=== PATIENT | male | born 1975 | race Caucasian/White ===

== ENCOUNTER 2022-07-26 05:48 | Emergency (ER) | payer BC, SELFPAY ==
[2022-07-26] VITALS (7 sets, daily range): BP systolic 106–125; BP diastolic 74–81; PULSE 74–84; RESP 16–18; TEMP 36.7; O2SAT 95–99; BMI 32.3
--- NOTE | 2022-07-26 06:08 | CRLHL7_ITS ---
For Patients: As a result of the Cures Act, medical imaging exams and procedure reports are released immediately into your electronic medical record. You may view this report before your referring provider. If you have questions, please contact your health care provider. Indication: Trauma and pain Technique: Left shoulder 1 views, AP. Comparison: None Impression: Limited one-view radiograph of the left shoulder demonstrates a comminuted, mildly displaced fracture involving the proximal humeral metadiaphysis, with surrounding soft tissue swelling. Dictated by Darrick Mera MD @ 07/26/2022 7:49:15 AM (Electronically Signed)
--- NOTE | 2022-07-26 06:11 | ED_ITS ---
HPI - General Adult General Date Seen: 07/26/22 Chief complaint: Shoulder Injury/Pain Stated complaint: fall, left shoulder injury Time Seen by Provider: 07/26/22 05:56 Source: patient and family Mode of arrival: ambulatory Limitations: no limitations History of Present Illness HPI narrative: Patient is a 47-year-old male who was slipped and fell on the ice. He believes he landed on his outstretched left arm. He comes to the emergency department with complaints of left upper arm pain. He denies any other injuries. He has no pain at the elbow, wrist, hand. He is unable to lift the left arm however. He suffers from type 2 diabetes, hypertension, anxiety and depression. He has not had any of his medications today. He ate last before midnight. He has done well with anesthesia with numerous other surgical procedures. Related Data Home Medications Medication Instructions Recorded Confirmed blood sugar diagnostic (Accu-Chek 07/26/22 07/26/22 Guide test strips) citalopram 40 mg tablet 40 mg PO DAILY 07/26/22 07/26/22 glimepiride 2 mg tablet 2 mg PO DAILY 07/26/22 07/26/22 insulin glargine-yfgn 100 unit/mL 50 unit subcut HS 07/26/22 07/26/22 (3 mL) subcutaneous pen (Semglee (insulin glargine-yfgn) Pen) lisinopril 20 2 tab PO DAILY 07/26/22 07/26/22 mg-hydrochlorothiazide 25 mg tablet metformin 1,000 mg tablet 1,000 mg PO BID 07/26/22 07/26/22 montelukast 10 mg tablet 10 mg PO HS 07/26/22 07/26/22 Allergies Allergy/AdvReac Type Severity Reaction Status Date / Time No Known Drug Allergies Allergy Verified 07/26/22 06:14 Review of Systems Narrative: Review of systems is outlined above otherwise noted to be negative. [facility] Medical History (Updated 07/26/22 @ 07:49 by Tirso Watson MD) Allergic rhinitis Closed fracture of sacrum Depression Fracture, ilium closed Generalized anxiety disorder History of penetrating abdominal trauma Hypertension Lumbar disc herniation Lumbar vertebral fracture Mild intermittent asthma Pain medication agreement Type 2 diabetes mellitus Surgical History (Updated 07/26/22 @ 07:05 by Tirso Watson MD) History of discectomy History of hemilaminectomy History of hernia repair History of repair of right rotator cuff Family History (Updated 07/26/22 @ 07:21 by Tirso Watson MD) Mother Breast cancer Father Diabetes High blood pressure Social History Smoking Status: Current every day smoker Second hand tobacco smoke exposure: No How often do you have a drink containing alcohol: never How often do you have six or more drinks on one occasion: Never AUDIT-C Alcohol total score: 0 Non-prescribed substance use: denies use Exam Narrative: Exam Narrative: Vitals noted. HEENT: Conjunctiva clear. Tympanic membranes are pearly white bilaterally. Posterior pharynx is clear without erythema or exudate. Neck is supple without adenopathy, thyromegaly, carotid bruit. Lungs: Clear to auscultation in all sellers. No wheezes, rales, rhonchi. Heart: Regular rate and rhythm without murmur. Abdomen: Soft and nontender. No guarding, rigidity, rebound. Bowel sounds are normal. No palpable masses. Extremities: Good distal pulses. He has a deformity of his left upper arm. No tenderness at the shoulder or elbow. Good distal CMS. Skin: No abnormalities noted of the exposed skin. Neurologic: Awake, alert, fully oriented. Neurologic exam is nonfocal. Const: Vital Signs, click to edit/add: Vital Signs - 24 hr 07/26/22 06:10 Temperature 98.0 F Pulse Rate [Right Pulse Oximeter] 84 Respiratory Rate 18 Blood Pressure [Ri ght Upper Arm] 125/74 Pulse Oximetry 99 Oxygen Delivery Me thod Room Air Course Course Hospital Course: Patient seen and examined. He has an obvious fracture of the left upper arm. X-ray confirms a comminuted proximal humerus fracture. CBC shows a hemoglobin but is otherwise normal. Basic metabolic panel, hemoglobin A1c are pending. Reevaluation(s) Reevaluation #1: Hemoglobin A1c is 7.8% corresponding to an average blood sugar of 170. Our [facility] orthopedists are unable to operate on him today and likely not next week. Mckayla came down and discussed things with the patient and we will try to find an orthopedic surgeon who can see him today and operate. He has been treated with fentanyl 50 mcg IV and hydroxyzine 50 mg. Vital Signs Vital signs: Initial Vital Signs Temperature 98.0 F 07/26/22 06:10 Temperature Source Temporal Artery Scan 07/26/22 06:10 Pulse Rate 84 07/26/22 06:10 Respiratory Rate 18 07/26/22 06:10 Blood Pressure 125/74 07/26/22 06:10 Blood Pressure Mean 91 07/26/22 06:10 Blood Pressure Position Sitting 07/26/22 06:10 Pulse Oximetry 99 07/26/22 06:10 Oxygen Delivery Method 07/26/22 06:10 Vital Signs Temperature 98.0 F 07/26/22 06:10 Pulse Rate 84 07/26/22 06:10 Respiratory Rate 18 07/26/22 06:10 Blood Pressure 125/74 07/26/22 06:10 Pulse Oximetry 99 07/26/22 06:10 Oxygen Delivery Method 07/26/22 06:10 Temperature 98.0 F 07/26/22 06:10 Pulse Rate 84 07/26/22 06:10 Respiratory Rate 18 07/26/22 06:10 Blood Pressure 125/74 07/26/22 06:10 Pulse Oximetry 99 07/26/22 06:10 Oxygen Delivery Method 07/26/22 06:10 Medical Decision Making Lab Data Labs: Lab Results 07/26/22 07/26/22 07/26/22 Range/Units 07:03 07:03 07:03 WBC 9.32 (4.50-11.00) K/uL RBC 3.84 L (4.30-5.90) m/uL Hgb 11.4 L (13.5-17.5) gm/dL Hct 33.2 L (37.0-53.0) % MCV 87 (80-100) fL MCH 30 (26-34) pg MCHC 34 (32-36) gm/dL RDW Coeff of Janet 13.1 (11.5-15.5) % Plt Count 203 (140-440) K/uL Neut % (Auto) 79.2 H (42.0-72.0) % Lymph % (Auto) 13.2 L (20-44) % [place] % (Auto) 6.9 (0.0-11.0) % Eos % (Auto) 0.1 (0.0-7.0) % Baso % (Auto) 0.5 (0.0-3.0) % Neut # (Auto) 7.40 H (1.7-7.0) K/uL Lymph # (Auto) 1.20 (0.90-2.90) K/uL [place] # (Auto) 0.60 (0.00-0.90) K/UL Eos # (Auto) 0.01 (0.00-0.50) K/uL Baso # (Auto) 0.05 (0.00-0.30) K/uL Sodium 121 L* (135-149) mmol/L Potassium 3.7 (3.6-5.1) mmol/L Chloride 86 L (96-114) mmol/L Carbon Dioxide 22 (20-32) mmol/L BUN 8 (5-24) mg/dL Creatinine 0.6 (0.5-1.5) mg/dL Estimated Creat Clear 160.53 Estimated GFR 121 ml/min Glucose 234 H (60-115) mg/dL Hemoglobin A1c 7.83 H (0-5.6) % Calcium 8.2 L (8.4-10.6) mg/dL Discharge Plan Discharge Clinical Impression: Fracture of proximal humerus Patient Disposition: Home, Self-Care Condition: Improved Additional Instructions: Keep splint on until seen in follow-up. Ice. Follow-up with ortho as soon as possible. Prescriptions: No Action citalopram 40 mg tablet 40 mg PO DAILY (DME) Accu-Chek Guide test strips Strip MISCELLANEOUS Label Comments: USE TO TEST TWICE DAILY glimepiride 2 mg tablet 2 mg PO DAILY Label Comments: TAKE 1 TABLET BY MOUTH ONCE DAILY WITH A MEAL insulin glargine-yfgn [Semglee(insulin glarg-yfgn)Pen] 100 unit/mL (3 mL) insulin pen 50 unit SUBCUT HS Label Comments: ADMINISTER 50 UNITS UNDER THE SKIN EVERY NIGHT AT BEDTIME lisinopril-hydrochlorothiazide 20-25 mg tablet 2 tab PO DAILY Label Comments: TAKE 2 TABLETS BY MOUTH DAILY TO LOWER YOUR BLOOD PRESSURE metformin 1,000 mg tablet 1,000 mg PO BID Label Comments: TAKE 1 TABLET BY MOUTH TWICE DAILY IN MORNING AND EVENING WITH MEALS montelukast 10 mg tablet 10 mg PO HS Label Comments: TAKE 1 TABLET BY MOUTH AT BEDTIME FOR ASTHMA OR ALLERGIES Follow Up/Referrals: Huber Mclaughlin MD [Primary Care Provider] - Stand Alone Forms: [facility] Info Instructions
--- NOTE | 2022-07-26 06:40 | CRLHL7_ITS ---
For Patients: As a result of the Century Cures Act, medical imaging exams and procedure reports are released immediately into your electronic medical record. You may view this report before your referring provider. If you have questions, please contact your health care provider. Indication: Trauma Technique: Left humerus, 2 images with one-view Comparison: None. Impression: Comminuted, moderately displaced fracture involving the proximal humeral metadiaphysis, with surrounding soft tissue swelling. Dictated by Darrick Mera MD @ 07/26/2022 7:51:08 AM (Electronically Signed)
[2022-07-26 07:13] LABS: Basophils Absolute Auto 0.05 K/uL (0.00-0.30); Basophils Percent Auto 0.5 % (0.0-3.0); Eosinophils Absolute Auto 0.01 K/uL (0.00-0.50); Eosinophils Percent Auto 0.1 % (0.0-7.0); Hematocrit 33.2 % (37.0-53.0); Hemoglobin* 11.4 gm/dL (13.5-17.5); Immature Granulocytes Abs Auto 0.01 K/uL (0.00-0.30); Immature Granulocytes Pct Auto 0.1 %; Lymphocytes Percent Auto 13.2 % (20-44); Mean Corpuscular HGB Conc 34 gm/dL (32-36); Mean Corpuscular Hemoglobin 30 pg (26-34); Mean Corpuscular Volume 87 fL (80-100); Monocytes Percent Auto 6.9 % (0.0-11.0); Neutrophils Percent Auto 79.2 % (42.0-72.0); Platelet Count* 203 K/uL (140-440); RDW Coefficient of Variation % 13.1 % (11.5-15.5); Red Blood Count 3.84 m/uL (4.30-5.90); White Blood Count* 9.32 K/uL (4.50-11.00)
[2022-07-26 07:16] LABS: Slide Review Reflex No
[2022-07-26 07:28] LABS: Hemoglobin A1C* 7.83 % (0-5.6)
[2022-07-26] MEDS: ONDANSETRON 2 MG/ML inj 4 MG IVP (07:36)
[2022-07-26] MEDS: fentaNYL 100 MCG/2 ML inj 50 MCG IVP (07:36)
[2022-07-26 07:53] LABS: Chloride* 86 mmol/L (96-114)
[2022-07-26 07:54] LABS: Potassium* 3.7 mmol/L (3.6-5.1)
[2022-07-26 07:56] LABS: Creatinine* 0.6 mg/dL (0.5-1.5); Est. Creatinine Clearance* 160.53; Estimated Glomerular Filt Rate 121 ml/min
[2022-07-26 07:57] LABS: Blood Urea Nitrogen* 8 mg/dL (5-24); Calcium* 8.2 mg/dL (8.4-10.6); Carbon Dioxide* 22 mmol/L (20-32); Glucose* 234 mg/dL (60-115)
[2022-07-26] MEDS: hydrOXYzine pamoate 25 MG CAPSULE 50 MG PO (07:57)
[2022-07-26 08:02] LABS: Sodium* 121 mmol/L (135-149)
--- NOTE | 2022-07-26 08:02 | ED.NURSE ---
Dr Watson updated on sodium level
[2022-07-26] MEDS: 0.9 % SODIUM CHLORIDE 1000 ml 1,000 ML IV (08:39)
--- NOTE | 2022-07-26 08:49 | ED.NURSE ---
Waiting to hear back from [facility] Outpatient orthopedics. Sodium 121. MD aware and saline ordered. Rechecked blood sugar and is 272. MD aware. Has not had any food today. Had about 20 oz of water around 5 am.
[2022-07-26] MEDS: diphenhydrAMINE 25 MG CAPSULE PO (09:42)
[2022-07-26] MEDS: HYDROmorphone 0.5 mg/0.5 ml inj IVP ×2 (09:42→14:01)
--- NOTE | 2022-07-26 09:42 | ED.NURSE ---
[facility] contacted and unable to accomodate his surgery today. Pt wanting us to call [place].
--- NOTE | 2022-07-26 09:53 | ED.NURSE ---
Contacting [facility].
--- NOTE | 2022-07-26 13:15 | CRLHL7_ITS ---
For Patients: As a result of the Cures Act, medical imaging exams and procedure reports are released immediately into your electronic medical record. You may view this report before your referring provider. If you have questions, please contact your health care provider. INDICATION: Trauma. Fall. Comminuted moderately displaced fracture proximal left humeral meta diaphysis. TECHNIQUE: Single scapular Y-view. COMPARISON: X-rays of the left shoulder and humerus from the same date. FINDINGS: The left humeral head does appear to be in close apposition to the glenoid. No definite fracture of the scapula itself. Comminuted displaced fracture proximal left humeral meta diaphysis. IMPRESSION: Left humeral fracture. Dictated by Jake Travis MD @ 07/26/2022 3:08:23 PM (Electronically Signed)
== END 2022-07-26 14:10 | disposition home or self-care (01) ==
PROVIDERS: Emergency Provider Family Medicine; PCP Family Medicine
DX: S42.202A Unspecified fracture of upper end of left humerus, initial encounter for closed fracture (principal); W00.9XXA Unspecified fall due to ice and snow, initial encounter
CPT/HCPCS: 36415; 73020; 73030; 73060; 80048; 82962; 83036; 85025; 94761; 96374; 96375; 96376; 99283; 99284; A9270; J1170; J2405; J3010; J7030

== ENCOUNTER 2022-07-30 13:55 | Outpatient (CLI) | payer BC, SELFPAY ==
[2022-07-30 16:49] LABS: Chloride* 93 mmol/L (96-114); Potassium* 3.5 mmol/L (3.6-5.1); Sodium* 128 mmol/L (135-149)
[2022-07-30 16:52] LABS: Blood Urea Nitrogen* 13 mg/dL (5-24); Carbon Dioxide* 26 mmol/L (20-32); Creatinine* 0.6 mg/dL (0.5-1.5); Estimated Glomerular Filt Rate 121 ml/min
[2022-07-30 16:53] LABS: Calcium* 9.1 mg/dL (8.4-10.6)
[2022-07-30 17:00] LABS: Glucose* 469 mg/dL (60-115)
== END 2022-07-30 13:56 | disposition home or self-care (01) ==
PROVIDERS: PCP Family Medicine; Visit Provider Nurse Practitioner Family
DX: Z01.818 Encounter for other preprocedural examination (principal)
CPT/HCPCS: 80048

== ENCOUNTER 2022-09-24 15:27 | Outpatient (REF) | payer BC, SELFPAY ==
[2022-09-24 17:16] LABS: Creatinine* 1.7 mg/dL (0.5-1.5); Estimated Glomerular Filt Rate 50 ml/min
== END 2022-09-24 15:28 | disposition home or self-care (01) ==
LOC: NPINS 15:27
PROVIDERS: PCP Family Medicine; Visit Provider Family Medicine
DX: T81.42XD Infection following a procedure, deep incisional surgical site, subsequent encounter (principal)
CPT/HCPCS: 80202; 82565

== ENCOUNTER 2022-09-26 15:00 | Outpatient (RCR) | payer BC, SELFPAY ==
--- NOTE | 2022-09-16 08:34 | PC.NURSE ---
Unable to draw blood off of PICC line initially. Cap changed. Push pause method, repositioning arm, and deep breaths were all used to successfully get blood to draw back. Labs were drawn and sent to lab.
[2022-09-16 08:36] LABS: Basophils Absolute Auto 0.05 K/uL (0.00-0.30); Basophils Percent Auto 1.1 % (0.0-3.0); Eosinophils Absolute Auto 0.13 K/uL (0.00-0.50); Eosinophils Percent Auto 2.8 % (0.0-7.0); Hematocrit 28.3 % (37.0-53.0); Immature Granulocytes Abs Auto 0.04 K/uL (0.00-0.30); Immature Granulocytes Pct Auto 0.9 %; Lymphocytes Absolute Auto 1.09 K/uL (0.90-2.90); Lymphocytes Percent Auto 23.8 % (20-44); Mean Corpuscular HGB Conc 32 gm/dL (32-36); Mean Corpuscular Hemoglobin 28 pg (26-34); Mean Corpuscular Volume 87 fL (80-100); Monocytes Percent Auto 15.1 % (0.0-11.0); Neutrophils Absolute Auto 2.58 K/uL (1.7-7.0); Neutrophils Percent Auto 56.3 % (42.0-72.0); Platelet Count* 286 K/uL (140-440); Red Blood Count 3.24 m/uL (4.30-5.90); White Blood Count* 4.58 K/uL (4.50-11.00)
[2022-09-16 08:39] LABS: Slide Review Reflex No
[2022-09-16 08:54] LABS: Aspartate Amino Transferase* 67 U/L (12-35); Creatinine* 0.5 mg/dL (0.5-1.5); Estimated Glomerular Filt Rate 128 ml/min
[2022-09-16 08:57] LABS: C Reactive Protein* 1.2 mg/dL (0.5-1.0)
--- NOTE | 2022-09-16 10:59 | PC.NURSE ---
Pt present today at [facility] for PICC line dressing change and labs. Due to location and length of PICC line, pt is unable to reach the hub with his LEFT arm to attach home IV antibiotics. He had extension tubing in place with the original placement of the PICC line. [facility] doesn't stock extension tubing. Pt didn't bring any with him. RN ирина labs and changed dressing per protocol. Hayes had his morning dose of abx in his car, he went and got it and this RN attached it per his direction/request. Hayes is headed to [facility] to see the surgeon, he will bring an extension tubing with him to that visit and ask the staff to attach to the end of his PICC line after removing the infused abx ball. Pt will then be able to give himself the subsequent doses. Hayes was directed to bring extension tubing to his next PICC line dressing change next Friday.
[2022-09-18 14:56] LABS: Creatinine* 0.6 mg/dL (0.5-1.5); Estimated Glomerular Filt Rate 121 ml/min
--- NOTE | 2022-09-19 07:57 | ONC.NURNOTE ---
Received phone call from [facility] regarding patient labs stating that they were requesting a vanco trough for yesterday. Informed them that last order was from 09/11/2022 and no trough was ordered. Home care will work with ID to get this order sent to our office, they would like the trough drawn tomorrow and then continue with normal labs following this. Nursing to watch for the order.
--- NOTE | 2022-09-20 09:42 | ONC.NURNOTE ---
Received call from Kiah COOK with [facility] requesting Vanco Trough be drawn today. Reviewed Lidya Jacobson's note from 09/19 saying we were waiting for orders to be faxed; reviewed that orders were received from [facility] later in day. Called pt to schedule; pt relays that he spoke to his team (home infusion) yesterday evening, who said next Vanco Trough was to be drawn 09/23. Spring Fitter Helper reviewed with JOYCE Dupont, requesting she coordinate with pt directly then update [facility] with the plan. Kiah COOK called back saying Vanco Trough level to be drawn before Saturday 09/23 afternoon dose; standing orders in place. Pt is sched for picc drsg change at that time; will draw labs then.
[2022-09-23 14:50] VITALS: BP 95/60; PULSE 93; TEMP 36.7; O2SAT 96
[2022-09-23 14:55] VITALS: BP 119/67
[2022-09-23 15:04] LABS: Basophils Absolute Auto 0.08 K/uL (0.00-0.30); Basophils Percent Auto 1.1 % (0.0-3.0); Eosinophils Absolute Auto 0.12 K/uL (0.00-0.50); Eosinophils Percent Auto 1.7 % (0.0-7.0); Hematocrit 31.4 % (37.0-53.0); Hemoglobin* 9.9 gm/dL (13.5-17.5); Immature Granulocytes Abs Auto 0.01 K/uL (0.00-0.30); Immature Granulocytes Pct Auto 0.1 %; Lymphocytes Percent Auto 15.7 % (20-44); Mean Corpuscular HGB Conc 32 gm/dL (32-36); Mean Corpuscular Hemoglobin 27 pg (26-34); Mean Corpuscular Volume 84 fL (80-100); Neutrophils Absolute Auto 4.66 K/uL (1.7-7.0); Neutrophils Percent Auto 66.4 % (42.0-72.0); Platelet Count* 268 K/uL (140-440); RDW Coefficient of Variation % 14.3 % (11.5-15.5); Red Blood Count 3.74 m/uL (4.30-5.90); White Blood Count* 7.02 K/uL (4.50-11.00)
[2022-09-23 15:05] VITALS: BP 124/66; PULSE 88
[2022-09-23 15:13] LABS: Slide Review Reflex No
[2022-09-23 15:25] LABS: Aspartate Amino Transferase* 52 U/L (12-35); Creatinine* 1.2 mg/dL (0.5-1.5); Estimated Glomerular Filt Rate 76 ml/min
[2022-09-23 15:29] LABS: C Reactive Protein* 1.8 mg/dL (0.5-1.0)
--- NOTE | 2022-09-23 16:08 | AT.DPN ---
Patient's creatine and CRP increased. Patient notified and told to expect a phone call from ID and homecare. Lab will be faxing all information to them once the vancomycin trough is completed.
--- NOTE | 2022-09-24 08:19 | ONC.NURNOTE ---
Mutuel Clerk came into clinic and noted drastic increase in vanco trough, in addition to elevated creatine that was called to patient yesterday. Patient heard from home care yesterday and they are holding his vancomycin and he is to have level re-drawn today. He will call once he hears back from homecare on plan. Patient feeling worn down. Instructed to push fluids today.
--- NOTE | 2022-09-24 15:39 | ONC.NURNOTE ---
Patient was here for a recheck on his creatinine and vancomycin. Patient stated that the Infectious Disease team would like a peripheral draw not off of PICC line to confirm levels of vanco and creatinine. Patient has been holding vancomycin since last night. Unfortunately, our chemistry machine will be down for about 2 hours this afternoon. Notified JOYCE Hernandez at [facility] and she requested that I give lab the fax number to fax results to and the phone number of the [facility] doctor to report critical values to. Patient expressed frustration with this process. Relayed that information on JOYCE Hernandez and she plans to call the patient this afternoon to follow up with him.
--- NOTE | 2022-09-24 15:57 | ONC.NURNOTE ---
JOYCE Hernandez called back and wants patient to have a creatinine and vanco level drawn again tomorrow afternoon. Scheduled patient for 1430 on 09/25. She will communicate this time to patient.
--- NOTE | 2022-09-25 09:00 | ONC.NURNOTE ---
Called [facility] to verify they recieved the lab results. They did and are aware of his elevated creatinine. They will reach out to the physician to see if he needs fluids. They will get back to us.
[2022-09-25 15:09] LABS: Creatinine* 1.9 mg/dL (0.5-1.5); Estimated Glomerular Filt Rate 44 ml/min
--- NOTE | 2022-09-25 16:23 | ONC.NURNOTE ---
Called patient to let him know of his creatinine results. Noticed the vanco trough was not ordered in the computer, but there is a paper order. There was not enough blood collected when patient was here before. Patient notified of this and asked if patient could come back in for vanco trough. He is planning to do this once he hears from his doctor. Results were also called and faxed to Infectious disease and they will follow up with patient.
--- NOTE | 2022-09-26 08:59 | ONC.NURNOTE ---
Received a call from [facility] that they received the Vanco trough numbers and to let us know patient was admitted at [facility]. Patient is scheduled for PICC dressing change and labs on Friday. They will call if this needs to be changed.
== END 2023-03-15 23:59 | disposition home or self-care (01) ==
LOC: CCIC 15:00
PROVIDERS: PCP Family Medicine; Referring Provider Family Medicine; Visit Provider Clinical Nurse Specialist
DX: T81.42XD Infection following a procedure, deep incisional surgical site, subsequent encounter (principal)
CPT/HCPCS: 36415; 36592; 80202; 82565; 84450; 85025; 86140; A4221